=== PATIENT | female | born 1930 | race Caucasian/White ===

== ENCOUNTER 2017-01-28 16:56 | Observation (INO) | payer MEDICARE, BC ==
[~2017-01-28] VITALS: Ht 193 cm; Wt 65.9 kg
[2017-01-28 21:07] LABS: BASOPHILS 0.2 % (0.0-2.0); EOSINOPHILS 1.2 % (0-7); HEMATOCRIT 42.5 % (36.0-48.0); HEMOGLOBIN 14.7 g/dL (12-16); IMMATURE GRANULOCYTES 0.2 % (0-5); LYMPHOCYTES 22.8 % (15-50); MCH 30.4 pg (26.0-34.0); MCHC 34.6 g/dL (31.0-37.0); MEAN PLATELET VOLUME 9.6 fL (7.4-10.4); MONOCYTES 9.4 % (2-11); NEUTROPHILS 66.2 % (40-80); PLATELET COUNT 227 10x3/uL (130-400); RBC 4.83 10x6/uL (4.00-5.40); RDW 13.1 % (11.5-14.5); WBC 8.9 10x3/uL (4.8-10.8)
[2017-01-28 21:17] LABS: APTT 24.5 SECONDS (22.8-39.4); INR 0.98 (0.85-1.17); PROTIME 12.8 SECONDS (11.6-15.0)
[2017-01-28 21:23] LABS: ALBUMIN 4.1 g/dL (3.4-5.0); ANION GAP 9.9 mmol/L (8-16); BILIRUBIN - TOTAL 0.6 mg/dL (0.2-1.3); CALCIUM 9.6 mg/dL (8.5-10.1); CARBON DIOXIDE 31.7 mmol/L (21.0-32.0); CREATININE - SERUM 0.9 mg/dL (0.6-1.3); POTASSIUM - SERUM 3.6 mmol/L (3.5-5.1); PROTEIN - SERUM 7.7 g/dL (6.4-8.2)
[2017-01-28 21:25] LABS: MAGNESIUM - SERUM 1.9 mg/dL (1.8-2.4)
[2017-01-28] MEDS ORDERED: PRINZIDE 20/12.1 TA1 PO (23:29)
[2017-01-28] MEDS ORDERED: TENORMIN25 MG PO (23:30)
[2017-01-28] MEDS ORDERED: VITAMIN B-1100 M1 PO (23:31)
[2017-01-28] MEDS ORDERED: VITAMIN D2000 UNIT PO (23:31)
[2017-01-28] MEDS ORDERED: CALCIUM 500 + D1 TAB PO (23:32)
[2017-01-28] MEDS ORDERED: BAYER CHEWABLE81 MG PO (23:32)
[2017-01-28] MEDS ORDERED: ATIVAN1 MG PO (23:33)
[2017-01-28] MEDS ORDERED: BENADRYL25 MG PO (23:34)
[2017-01-28] MEDS ORDERED: ATIVAN0.5 MG PO (23:34)
[2017-01-29] VITALS: BP 138/58
[2017-01-29 00:35] VITALS: BP 138/58; Ht 193 cm; Wt 65.9 kg
[2017-01-29 04:00] VITALS: BP 119/56
--- NOTE | 2017-01-29 07:00 | NUR ---
REPORT RECIEVED ASSUMED CARE. PATIENT IN BED WITH IV INTACT. NO COMPLAINTS OR SIGNS OF DISTRESS. CALL LIGHT WITHIN REACH.
[2017-01-29 07:59] VITALS: BP 138/61
--- NOTE | 2017-01-29 10:45 | NUR ---
PATIENT UP TO CHAIR AT THIS TIME. NO NEUROLOGICAL PROBLEMS NOTED. IV INTACT. NO COMPLAINTS. CALL LIGHT WITHIN REACH.
[2017-01-29 12:21] VITALS: BP 118/41
--- NOTE | 2017-01-29 13:50 | NUR ---
PATIENT IN BED WITH NO COMPLAINTS OR PROBLEMS. IV INTACT. STATED HER HEAD IS BETTER ONLY SORE IN THE SPOT SHE HIT IT. CALL LIGHT WITHIN REACH.
--- NOTE | 2017-01-29 15:57 | NUR ---
Patient Name: LISA CELESTIN Admission Status: ER Admission Date: 01-28-2017 : 1930 Admission Diagnosis: Attending: CINTIA Current LOS: 1 Anticipated DC Date: 01-29-2017 Planned Disposition: Home Primary Insurance: MEDICARE A & B Discharge Planning Comments: CM met with patient to discuss discharge planning/needs. The patient states she lives alone in a single story home with no stairs or steps. She states there is a wheelchair ramp to the back door which she uses. The patient states she is independent of all ADL's and uses no DME equipment. The declines the need for HH/DME at this time. Her transportation home will be her vz-frujuhrs-so-law "[employer]" ([phone]). Her PCP is Dr. Contreras and [facility][phone][facility] The patient states her home is a safe environment to return to. CM to follow and continue to assist with discharge planning/needs. Heel Stainer: Trish Lewis Is the patient Alert and Oriented? Yes 0 * How many steps to enter\\exit or inside your home? 0 0 * PCP Dr. Contreras 0 * [facility] ([phone]) 0 * Preadmission Environment Home Alone 0 * ADLs Independent 0 * Equipment None 0 * List name and contact numbers for known caregivers / representatives who currently or will assist patient after discharge: [employer] ([id number]-law) [phone] Cindi Hutchinson (granddaughter) [phone] 0 * Community resources currently utilized None 0 * Additional services required to return to the preadmission environment? No 0 * Can the patient safely return to the preadmission environment? Yes 0 * Has this patient been hospitalized within the prior 30 days at any hospital? No 0 Grand Total: 0
[2017-01-29 16:39] VITALS: BP 129/53
--- NOTE | 2017-01-29 16:55 | NUR ---
PATIENT IN BED WITH IV INTACT. NO COMPLAINTS, CALL IGHT WITHIN REACH.
--- NOTE | 2017-01-29 19:30 | NUR ---
PATIENT IV REMOVED WITH CATH TIP INTACT. [facility] WAITING AT BEDSIDE. CALL LIGHT WITHIN REACH.
--- NOTE | 2017-01-29 20:00 | NUR ---
PATIENT RECIEVED DC INSTRUCTIONS. VERBALIZED UNDERSTANDING. NO QUESTIONS AT THIS TIME. CALL LIGHT WITHIN REACH.
== END 2017-01-29 22:04 | disposition home or self-care (01) ==
LOC: D.ER 16:56 → D.MS 21:06 → OBSVTIME 22:00 → D.MS 01-29 22:04
PROVIDERS: Emergency Medicine; ADMIT Family Medicine
DX: S06.2X0A Diffuse traumatic brain injury without loss of consciousness, initial encounter (principal); W01.0XXA Fall on same level from slipping, tripping and stumbling without subsequent striking against object, initial encounter; Y92.009 Unspecified place in unspecified non-institutional (private) residence as the place of occurrence of the external cause; I10 Essential (primary) hypertension; Z86.73 Personal history of transient ischemic attack (TIA), and cerebral infarction without residual deficits

== ENCOUNTER → 2017-04-01 10:24 | Outpatient (CLI) | payer MEDICARE, BC ==
[2017-01-29 00:35] VITALS: BMI 17.6
[~2017-04-01 10:24] MED LIST: ATIVAN0.5 MG PO; ATIVAN1 MG PO; BAYER CHEWABLE81 MG PO; BENADRYL25 MG PO; CALCIUM 500 + D1 TAB PO; PRINZIDE 20/12.1 TA1 PO; TENORMIN25 MG PO; VITAMIN B-1100 M1 PO; VITAMIN D2000 UNIT PO
== END | disposition home or self-care (01) ==
LOC: D.CT 10:24
DX: N13.30 Unspecified hydronephrosis (principal)